=== PATIENT | male | born 1980 | race African-American/Black ===

== ENCOUNTER 2017-07-07 20:15 | Emergency (ER) | payer OTHER ==
[~2017-07-07] VITALS: Ht 170.2 cm; Wt 106.6 kg
[~2017-07-07 20:15] MED LIST: AUGMENTIN875 MG PO; BENTYL10 MG PO; TRAMADOL HCL50 MG PO
[2017-07-07 20:55] LABS: ADD MIUA? NO; BILIRUBIN NEGATIVE; BLOOD NEGATIVE; COLOR YELLOW ((YELLOW)); GLUCOSE (STRIP) NEGATIVE; KETONES NEGATIVE; LEUKOCYTES NEGATIVE; NITRITE NEGATIVE; PROTEIN (STRIP) 30; SPECIFIC GRAVITY 1.018 (1.000-1.030); UCUL ADDED? NO; UROBILINOGEN 0.2 MG/DL (0.2-1.0)
[2017-07-07] MEDS ORDERED: SKELAXIN800 MG PO (21:34)
[2017-07-07] MEDS ORDERED: ULTRAM50 MG PO (21:34)
[2017-07-07 22:00] VITALS: BP 176/119
== END 2017-07-07 22:01 | disposition home or self-care (01) ==
LOC: EME 20:15
PROVIDERS: Physician Assistant
DX: M62.830 Muscle spasm of back (principal); I10 Essential (primary) hypertension
CPT/HCPCS: 71020; 81003; 99281; 99284